=== PATIENT | female | born 1980 | race Caucasian/White ===

== ENCOUNTER 2018-10-07 01:43 | Emergency (ER) | payer OTHER ==
[~2018-10-07] VITALS: Ht 165.1 cm; Wt 97.5 kg
[~2018-10-07 01:43] MED LIST: CARBAMAZEPINE200 MG PO; CHLORDIAZEPOXID25 MG PO; GABAPENTIN300 MG PO; HYDROXYZINE HCL50 MG PO; SERTRALINE HCL100 MG PO; TRAZODONE HCL50 MG PO; VENTOLIN HFA18 GM INH
--- OUTSIDE RECORDS SUMMARY | 2018-10-07 01:46 | XMS ---
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 No recent Security Events currently on file CRITERIA MET - 6 ED Visits in 6 Months - [facility] - Has Care Guidelines - [facility] - 2 Visits in 30 Days CARE PROVIDERS Florentino Deal - Case or Court Interpreter [facility]: [phone] Fazal Jang - Primary Care Current [facility] PHONE: [phone] Guidelines Source: [facility] Guidelines Date: 12/20/2017 Care Recommendation: Care Recommendation: No controlled substances should be administered in the ED or prescribed from the ED for subjective pain. Primary Care Provider (PCP) is Dr. Rubalcava? at the [facility] at . Nurse name is Janeth. Notify PCP if giving any additional narcotics for objective findings. PCPsupports enrollment in the Consistent Care Program. Medical/Surgical History: - Alcoholism - Long standing alcohol abuse requiring IP treatment for withdrawal -Only provide medications for withdrawal if a plan for detox and treatment is in place. - NO BENZO's or LIBRIUM FROM THE ED- SHE IS RESISTANT TO ANY TREATMENT THROUGH [place] FOR MANY YEARS - SHE NEEDS TO CONTACT THE [place] ADDICTION THERAPIST [phone] EXT [id number], ATTENTION: ANNAMARIA - Possible treatment in [place] per patient report on 02/25/2017 - Asthma - Problem List: -[place]- Alcohol detox services and treatment requires authorization. Closest detox facility in [place]. -No coverage for local detox unit under the [place] benefits. Must be detained in order to be accepted. -Severe alcoholism- presenting to the ED with BAL >.300 -She should be encouraged to coordinate her plan for abstinence with a detox bed and subsequent treatment. Behavioral Health: - PTSD - Depression -[facility] is managing her BH conditions. Substance Abuse: PLEASE OBTAIN UDS Alcoholism - history of extensive IP treatment in the past. She is receiving naltrexone injections. 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 Social Needs: [place] services Pain/Opioid Agreement: -DO NOT provide controlled substances, risk for overdose. Additional Information: Please do not give this Care Guideline to the patient. This document is for provider and staff use only. These are guidelines and the provider should exercise clinical judgment when providing care. [facility] MO[facility] [address] [place] TOTAL 16 NOTE: Visits indicate total known visits. ED/UCC VISIT TRACKING (12 MO.) 10/07/2018 01:43 KIRTI Raphael TYPE: Emergency COMPLAINT: - CHEST PAIN/WITHDRAWAL 09/13/2018 04:07 Saskia MCKENNA TYPE: Emergency COMPLAINT: - ETOH WITHDRAWAL 08/30/2018 01:50 Saskia MCKENNA TYPE: Emergency COMPLAINT: - CHEST PAIN,VOMITING 08/14/2018 17:36 KIRTI Raphael TYPE: Emergency COMPLAINT: - HIGH BLOOD PRESSURE DIAGNOSES: - Allergy status to penicillin - Alcohol dependence with withdrawal, unspecified - Personal history of nicotine dependence - Allergy status to other drugs, medicaments and biological substances status - Post-traumatic stress disorder, unspecified - Anxiety disorder, unspecified - Other [facility] (current) drug therapy - Unspecified asthma, uncomplicated - Major depressive disorder, single episode, unspecified - Alcohol dependence, uncomplicated - Tremor, unspecified 08/12/2018 14:03 Saskia MCKENNA TYPE: Emergency COMPLAINT: - ETOH 07/23/2018 20:[address] 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 therapy 07/14/2018 08:17 Saskia MCKENNA TYPE: Emergency COMPLAINT: - ALCOHOL WITHDRAWL 07/10/2018 19:41 KIRTI Raphael TYPE: Emergency COMPLAINT: - VOMITING DIAGNOSES: - Allergy status to penicillin - Unspecified asthma, uncomplicated - Allergy status to other drugs, medicaments and biological substances status - Other oil heaterman (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: Emergency DIAGNOSES: - Alcohol Intoxication - Nausea - Vomiting, unspecified - Alcohol use, unspecified with intoxication, uncomplicated 06/04/2018 01:42 Saskia MCKENNA TYPE: Emergency COMPLAINT: - 303.90 05/24/2018 00:20 [facility] ID TYPE: Emergency DIAGNOSES: - EMS WITHDRAWAL - Alcohol dependence with withdrawal, uncomplicated 05/17/2018 13:04 [facility] TYPE: Emergency DIAGNOSES: - Unspecified abdominal pain - Generalized abdominal pain - Flank Pain - Disorder of kidney and ureter, unspecified - bilateral flank pain 03/17/2018 20:35 Saskia MCKENNA TYPE: Emergency COMPLAINT: - 303.90 03/04/2018 23:34 Saskia MCKENNA TYPE: Emergency COMPLAINT: - ALCOHOL WITHDRAWALS INPATIENT VISIT TRACKING (12 MO.) 09/13/2018 06:33 Saskia MCKENNA TYPE: Intensive Care COMPLAINT: - ETOH WITHDRAWAL 06/30/2018 23:14 Saskia MCKENNA TYPE: Intensive Care COMPLAINT: - ALCOHOL WITHDRAWAL [email or web address]
[2018-10-07] MEDS ORDERED: CLONIDINE HCL0.1 MG PO (03:30)
[2018-10-07] MEDS ORDERED: OMEPRAZOLE MAGN20 MG PO (03:31)
[2018-10-07] MEDS ORDERED: NICOTINE PATCH1 EACH TD (03:33)
[2018-10-07] MEDS ORDERED: THIAMINE HCL100 MG PO (03:34)
[2018-10-07] MEDS ORDERED: FOLIC ACID1 MG PO (03:35)
[2018-10-07] MEDS ORDERED: LEVOTHYROXINE25 MCG PO (03:38)
[2018-10-07] MEDS ORDERED: CETIRIZINE HCL10 MG PO (03:39)
[2018-10-07] MEDS ORDERED: ACYCLOVIR200 MG PO (03:42)
[2018-10-07] MEDS ORDERED: FLOVENT DISKUS50 MCG INH (03:43)
[2018-10-07] MEDS ORDERED: PROAIR RESPICL90 MCG (03:44)
[2018-10-07] MEDS ORDERED: EYE DROPS15 ML OPTH (03:46)
[2018-10-07] MEDS ORDERED: GI COCKTAIL PO (03:50)
[2018-10-07] MEDS ORDERED: CHLORDIAZEPOXID25 MG PO (03:58)
[2018-10-07] MEDS ORDERED: ACETAMINOPHEN500 MG PO (03:59)
[2018-10-07] MEDS ORDERED: ONDANSETRON ODT8 MG PO (04:01)
[2018-10-07] MEDS ORDERED: IBUPROFEN800 MG PO (04:02)
[2018-10-07] MEDS ORDERED: MELATONIN1 MG PO (04:03)
[2018-10-07] MEDS ORDERED: TRAZODONE HCL100 MG PO (04:06)
== END 2018-10-07 04:18 | disposition home or self-care (01) ==
LOC: ED 01:43
DX: F10.239 Alcohol dependence with withdrawal, unspecified (principal); Y90.0 Blood alcohol level of less than 20 mg/100 ml; J45.909 Unspecified asthma, uncomplicated; F43.10 Post-traumatic stress disorder, unspecified; F32.9 Major depressive disorder, single episode, unspecified; F41.9 Anxiety disorder, unspecified; Z87.891 Personal history of nicotine dependence; Z88.0 Allergy status to penicillin; Z88.8 Allergy status to other drugs, medicaments and biological substances; Z79.899 Other long term (current) drug therapy
CPT/HCPCS: 80053; 96361; 96374; 96375; 96376; 99284-25; G0480; J2060; J2405; J2550; J7030